=== PATIENT | male | born 1975 | race Caucasian/White ===

== ENCOUNTER 2016-04-15 08:11 | Emergency (ER) | payer OTHER ==
[2016-04-15] MEDS ORDERED: DUONEB INH ONE (08:43)
[2016-04-15] MEDS ORDERED: METHYLPRED SOD SUCC 125 MG/2 ML VIAL ONE (09:01)
[2016-04-15] MEDS ORDERED: SODIUM CHLORIDE 0.9% 1,000 ML ONE (09:01)
[2016-04-15] MEDS ORDERED: ONDANSETRON 4 MG VIAL ONE (09:09)
== END 2016-04-15 10:23 | disposition home or self-care (01) ==
LOC: ER 08:11
DX: J06.9 Acute upper respiratory infection, unspecified (principal); F17.210 Nicotine dependence, cigarettes, uncomplicated; R11.2 Nausea with vomiting, unspecified
CPT/HCPCS: 71020; 87804; 94640; 96361; 96365; 96367